=== PATIENT | female | born 1980 | race Caucasian/White ===

== ENCOUNTER 2017-10-14 20:31 | Inpatient (IN) | payer OTHER ==
[~2017-10-14] VITALS: Ht 157.5 cm; Wt 93.1 kg
[2017-10-14 22:25] VITALS: BP 130/86
[2017-10-14] MEDS: ONDANSETRON PF 4 MG/2 ML VIAL. IV PRN (22:59)
[2017-10-14] MEDS: IV NORMAL SALINE 1000ML BAG 1,000 ML IV SCH (22:59)
[2017-10-14 23:00] VITALS: BP 130/86
[2017-10-14] MEDS: MORPHINE SULFATE 2 MG/ML DISP.SYRIN. IV PRN (23:00)
[2017-10-15] VITALS (12 sets, daily range): BP systolic 88–130; BP diastolic 56–86
[2017-10-15] MEDS: MORPHINE SULFATE 2 MG/ML DISP.SYRIN. IV PRN ×3 (02:00→08:45)
[2017-10-15 05:29] LABS: BASO % 1 % (0-3); EOS % 2 % (0-3); HEMATOCRIT 34.5 % (36.0-47.0); HEMOGLOBIN 11.8 g/dL (12.0-15.5); LYMPH # 2.7 x10^3/uL (1.0-4.8); LYMPH % 40 % (24-48); MEAN CORPUSCULAR HEMOGLOBIN 31 pg (25-35); MEAN CORPUSCULAR HGB CONC 34 g/dL (31-37); MEAN CORPUSCULAR VOLUME 90 fL (79-100); MONO % 9 % (0-9); NEUT % 49 % (31-73); PLATELET COUNT 213 x10^3/uL (140-400); RED BLOOD COUNT 3.85 x10^6/uL (3.50-5.40); RED CELL DISTRIBUTION WIDTH 13.4 % (11.5-14.5); WHITE BLOOD COUNT 6.8 x10^3/uL (4.0-11.0)
[2017-10-15] MEDS ORDERED: METF500T4 PO (05:34)
[2017-10-15] MEDS ORDERED: PREN-14 PO (05:34)
[2017-10-15 05:55] LABS: CALCIUM 7.4 mg/dL (8.5-10.1); CREATININE 0.7 mg/dL (0.6-1.0); GFR 93.6; POTASSIUM 4.1 mmol/L (3.5-5.1)
[2017-10-15] MEDS: ONDANSETRON PF 4 MG/2 ML VIAL. IV PRN (08:08)
--- NOTE | 2017-10-15 10:12 | PDOC1 ---
History and Physical Date of Admission Date of Admission DATE: 10/15/17 TIME: 10:05 Identification/Chief Complaint Chief Complaint abdominal pain and nausea Problems: Source Source: Chart review, Patient History of Present Illness History of Present Illness patient transferred from [facility] overnight for acute abdominal pain. SHe has been seen at fertility clinic, and had recent miscarriage, but had felt well. Yesterday, pain worsened over 2 days, severe pain now, 7-8/10 after iV pain meds given, some nausea, she complains of dry heaves this AM, some possible chills, mild fever symptoms, no temperature documented, weight has been stable nausea is poorly controlled, not improved with IV zofran Past Medical History Cardiovascular: No pertinent hx Pulmonary: No pertinent hx GI: No pertinent hx Heme/Onc: No pertinent hx Hepatobiliary: No pertinent hx Psych: No pertinent hx Rheumatologic: No pertinent hx Infectious disease: No pertinent hx ENT: No pertinent hx Renal/: No pertinent hx Endocrine: No pertinent hx Dermatology: No pertinent hx Grav: 3 Para: 1 Past Surgical History Past Surgical History: No pertinent history Family History Family History: Hypertension Social History Smoke: No ALCOHOL: none Current Medications Current Medications Current Medications Morphine Sulfate 2 mg PRN Q2HR PRN IV SEVERE PAIN Last administered on 08:45; Start 10/14/17 at 22:45; Stop 10/15/17 at 10:03; Status DC Ondansetron HCl (Zofran) 4 mg PRN Q6HRS PRN IV NAUSEA/VOMITING Last administered on 10/15/17 08:08; Start 10/14/17 at 22:45; Stop 10/15/17 at 10 :04; Status DC Sodium Chloride 1,000 ml @ 125 mls/hr Q8H IV Last administered on 10/14/17 22:59; Start 10/14/17 at 22:45 Morphine Sulfate 4 mg PRN Q2HR PRN IV SEVERE PAIN; Start 10/15/17 at 10:15; Status UNV Saliva Substitute (Biotene Moisturizing Mouth) 2 spray PRN Q15MIN PRN PO DRY MOUTH; Start 10/15/17 at 10:15; Status UNV Ondansetron HCl (Zofran) 8 mg PRN Q8HRS PRN IV NAUSEA/VOMITING; Start 12/23/ 17 at 10:15; Status UNV Active Scripts Active Reported Metformin Hcl 500 Mg Tablet 500 Mg PO BIDWMEALS Tablet ( #103/Iron Fumarate/Fa) 1 Each Tablet 1 Each PO Allergies Allergies: Coded Allergies: No Known Allergies (Verified Allergy, Unknown, 10/14/17) ROS General: YES: Appetite, No: Chills, Night Sweats, Fatigue, Malaise, Other PSYCHOLOGICAL ROS: No: Anxiety, Behavioral Disorder, Concentration difficultie , Decreased libido, Depression, Disorientation, Hallucinations, Hostility, Irritablity, Memory difficulties, Mood Swings, Obsessive thoughts, Other Eyes: No Blurry vision, No Decreased vision, No Double vision, No Dry eyes, No Excessive tearing, No Eye Pain, No Itchy Eyes, No Loss of vision, No Photophobia , No Scotomata, No Uses contacts, No Uses glasses, No Other HEENT: No: Heacaches, Visual Changes, Hearing change, Nasal congestion, Nasal discharge, Oral lesions, Sinus pain, Sore Throat, Epistaxis, Sneezing, Snoring, Tinnitus, Vertigo, Vocal changes, Other Hematological and Lymphatic: No: Bleeding Problems, Blood Clots, Blood Transfusions, Brusing, Night Sweats, Pallor, Swollen Lymph Nodes, Other Respiratory: No: Cough, Hemoptysis, Orthopnea, Pleuritic Pain, Shortness of breath, SOB with excertion, Sputum Changes, Stridor, Tachypnea, Wheezing, Other Cardiovascular: No Chest Pain, No Palpitations, No Orthopnea, No Paroxysmal Noc. Dyspnea, No Edema, No Lt Headedness, No Other Gastrointestinal: Yes Nausea, Yes Vomiting, Yes Abdominal Pain Genitourinary: No Dysuria, No Frequency, No Incontinence, No Hematuria, No Retention, No Discharge, No Urgency, No Pain, No Flank Pain, No Other, No , No , No , No , No , No , No Musculoskeletal: No Gait Disturbance, No Joint Pain, No Joint Stiffness, No Joint Swelling, No Muscle Pain, No Muscular Weakness, No Pain In:, No Swelling In:, No Other Neurological: No Behavorial Changes, No Bowel/Bladder ControlChng, No Confusion , No Dizziness, No Gait Disturbance, No Headaches, No Impaired Coord/balance, No Memory Loss, No Numbness/Tingling, No Seizures, No Speech Problems, No Tremors, No Visual Changes, No Weakness, No Other Skin: Yes Dry Skin, No Eczema, No Hair Changes, No Lumps, No Mole Changes, No Mottling, No Nail Changes, No Pruritus, No Rash, No Skin Lesion Changes, No Other, No Acne Physical Exam General: Alert, mild distress, moderate distress HEENT: PERRLA, EOMI, Mucous membr. moist/pink Lungs: Clear to auscultation Heart: no gallops, murmurs Abdomen: Normal bowel sounds, Soft, Other (tender, RLQ with guarding, mild referred, pain with me moving the bed, ) Extremities: No cyanosis, No edema Skin: No rashes Neuro: Normal gait, Sensation intact Psych/Mental Status: Mood NL (pain) Vitals Vitals Vital Signs Date Time Temp Pulse Resp B/P (MAP) Pulse Ox O2 Delivery O2 Flow Rate FiO2 10/15/17 09:23 Room Air 10/15/17 07:15 98.6 90 18 109/71 (84) 97 98.6 Labs Labs Laboratory Tests Test 10/15/17 05:00 White Blood Count 6.8 x10^3/uL (4.0-11.0) Red Blood Count 3.85 x10^6/uL (3.50-5.40) Hemoglobin 11.8 g/dL (12.0-15.5) Hematocrit 34.5 % (36.0-47.0) Mean Corpuscular Volume 90 fL (79-100) Mean Corpuscular Hemoglobin 31 pg (25-35) Mean Corpuscular Hemoglobin Concent 34 g/dL (31-37) Red Cell Distribution Width 13.4 % (11.5-14.5) Platelet Count 213 x10^3/uL (140-400) Neutrophils (%) (Auto) 49 % (31-73) Lymphocytes (%) (Auto) 40 % (24-48) Monocytes (%) (Auto) 9 % (0-9) Eosinophils (%) (Auto) 2 % (0-3) Basophils (%) (Auto) 1 % (0-3) Neutrophils # (Auto) 3.3 x10^3uL (1.8-7.7) Lymphocytes # (Auto) 2.7 x10^3/uL (1.0-4.8) Monocytes # (Auto) 0.6 x10^3/uL (0.0-1.1) Eosinophils # (Auto) 0.2 x10^3/uL (0.0-0.7) Basophils # (Auto) 0.0 x10^3/uL (0.0-0.2) Sodium Level 142 mmol/L (136-145) Potassium Level 4.1 mmol/L (3.5-5.1) Chloride Level 108 mmol/L (98-107) Carbon Dioxide Level 26 mmol/L (21-32) Anion Gap 8 (6-14) Blood Urea Nitrogen 7 mg/dL (7-20) Creatinine 0.7 mg/dL (0.6-1.0) Estimated GFR (Cockcroft-Gault) 93.6 Glucose Level 84 mg/dL (70-99) Calcium Level 7.4 mg/dL (8.5-10.1) Laboratory Tests Test 10/15/17 05:00 White Blood Count 6.8 x10^3/uL (4.0-11.0) Red Blood Count 3.85 x10^6/uL (3.50-5.40) Hemoglobin 11.8 g/dL (12.0-15.5) Hematocrit 34.5 % (36.0-47.0) Mean Corpuscular Volume 90 fL (79-100) Mean Corpuscular Hemoglobin 31 pg (25-35) Mean Corpuscular Hemoglobin Concent 34 g/dL (31-37) Red Cell Distribution Width 13.4 % (11.5-14.5) Platelet Count 213 x10^3/uL (140-400) Neutrophils (%) (Auto) 49 % (31-73) Lymphocytes (%) (Auto) 40 % (24-48) Monocytes (%) (Auto) 9 % (0-9) Eosinophils (%) (Auto) 2 % (0-3) Basophils (%) (Auto) 1 % (0-3) Neutrophils # (Auto) 3.3 x10^3uL (1.8-7.7) Lymphocytes # (Auto) 2.7 x10^3/uL (1.0-4.8) Monocytes # (Auto) 0.6 x10^3/uL (0.0-1.1) Eosinophils # (Auto) 0.2 x10^3/uL (0.0-0.7) Basophils # (Auto) 0.0 x10^3/uL (0.0-0.2) Sodium Level 142 mmol/L (136-145) Potassium Level 4.1 mmol/L (3.5-5.1) Chloride Level 108 mmol/L (98-107) Carbon Dioxide Level 26 mmol/L (21-32) Anion Gap 8 (6-14) Blood Urea Nitrogen 7 mg/dL (7-20) Creatinine 0.7 mg/dL (0.6-1.0) Estimated GFR (Cockcroft-Gault) 93.6 Glucose Level 84 mg/dL (70-99) Calcium Level 7.4 mg/dL (8.5-10.1) VTE Prophylaxis Ordered VTE Prophylaxis Devices: Yes VTE Pharmacological Prophylaxi: Contraindicated Assessment/Plan Assessment/Plan Acute right lower quadrant pain, nausea and vomiting guarding pain recent miscarriage, B-hgb 2, implies cleared, but no D+C obesity, BMI 37 SHANNON JARVIS MD Oct 15, 2017 10:12
[2017-10-15] MEDS ORDERED: SALIVA STIMULANT AGENT 44ML SPRAY BOTTLE. PO PRN (10:15)
[2017-10-15] MEDS ORDERED: ONDANSETRON PF 4 MG/2 ML VIAL. IV PRN ×3 (10:15→18:30)
[2017-10-15] MEDS ORDERED: MORPHINE SULFATE 4 MG/ML DISP.SYRIN. IV PRN (10:15)
[2017-10-15] MEDS: IV NORMAL SALINE 1000ML BAG 1,000 ML IV SCH ×2 (11:55→19:16)
[2017-10-15] MEDS ORDERED: BUPIVAC MPF-EPI 0.5%-1:200000 30 ML VIAL. ONE (13:36)
[2017-10-15] MEDS ORDERED: SCOPOLAMINE 1.5MG PATCH. TD ONE ×2 (15:06→15:15)
[2017-10-15] MEDS ORDERED: fentaNYL PF VIAL 100 MCG/2 ML VIAL ONE (15:30)
[2017-10-15] MEDS ORDERED: ROCURONIUM 50 MG/5 ML VIAL. ONE (15:31)
[2017-10-15] MEDS ORDERED: LIDOCAINE 2% PF Vial for OR 5 ML VIAL. ONE (15:33)
[2017-10-15] MEDS ORDERED: DEXAMETHASONE SOD PHOS 20 MG/5 ML VIAL. ONE (15:33)
[2017-10-15] MEDS ORDERED: ONDANSETRON PF 4 MG/2 ML VIAL. ONE (15:33)
[2017-10-15] MEDS ORDERED: PROPOFOL 20 ML IV ONE (15:33)
--- NOTE | 2017-10-15 15:37 | PDOC2 ---
CONSULT Date of Consult Date of Consult DATE: 10/15/17 TIME: 15:33 Reason for Consult Reason for Consult: vaginal bleeding and appendicitis Referring Physician Referring Physician: Dr. Mantilla Identification/Chief Complaint Chief Complaint appenciditis and vaginal bleeding. Problems: Source Source: Chart review History of Present Illness Reason for Visit: 37 y/o with incomplete spontaneous and appendicitis dx at [facility]. Pt. in surgery currently. Pt.'s HCG level of 5 indicates completed SAB. WIll f/u tomorrow when patient recovering from surgery. Past Medical History Cardiovascular: No pertinent hx Pulmonary: No pertinent hx GI: No pertinent hx Heme/Onc: No pertinent hx Hepatobiliary: No pertinent hx Psych: No pertinent hx Rheumatologic: No pertinent hx Infectious disease: No pertinent hx ENT: No pertinent hx Renal/: No pertinent hx Endocrine: No pertinent hx Dermatology: No pertinent hx Grav: 3 Para: 1 Past Surgical History Past Surgical History: No pertinent history Family History Family History: Hypertension Social History No ALCOHOL: none Current Medications Current Medications Current Medications Morphine Sulfate 2 mg PRN Q2HR PRN IV SEVERE PAIN Last administered on 08:45; Start 10/14/17 at 22:45; Stop 10/15/17 at 10:03; Status DC Ondansetron HCl (Zofran) 4 mg PRN Q6HRS PRN IV NAUSEA/VOMITING Last administered on 10/15/17 08:08; Start 10/14/17 at 22:45; Stop 10/15/17 at 10 :04; Status DC Sodium Chloride 1,000 ml @ 125 mls/hr Q8H IV Last administered on 10/15/17 11:55; Start 10/14/17 at 22:45 Morphine Sulfate 4 mg PRN Q2HR PRN IV SEVERE PAIN Last administered on 11:58; Start 10/15/17 at 10:15 Saliva Substitute (Biotene Moisturizing Mouth) 2 spray PRN Q15MIN PRN PO DRY MOUTH; Start 10/15/17 at 10:15 Ondansetron HCl (Zofran) 8 mg PRN Q8HRS PRN IV NAUSEA/VOMITING; Start at 10:15 Bupivacaine HCl/ Epinephrine Bitart (Sensorcain-Mpf Epi 0.5%-1:040304) 30 ml STK -MED ONCE .ROUTE ; Start 10/15/17 at 13:36; Stop 10/15/17 at 13:37; Status DC Scopolamine (Transderm-Scop) 1 patch 1X ONCE TD Last administered on t 15:10; Start 10/15/17 at 15:15; Stop 10/15/17 at 15:16; Status DC Scopolamine (Transderm-Scop) 1 patch STK-MED ONCE TD ; Start 10/15/17 at 15:06 ; Stop 10/15/17 at 15:07; Status DC Fentanyl Citrate (Fentanyl 2ml Vial) 100 mcg STK-MED ONCE .ROUTE ; Start at 15:30; Stop 10/15/17 at 15:31; Status DC Rocuronium [place] (Zemuron) 50 mg STK-MED ONCE .ROUTE ; Start 10/15/17 at 15: 31; Stop 10/15/17 at 15:32; Status DC Active Scripts Active Reported Metformin Hcl 500 Mg Tablet 500 Mg PO BIDWMEALS Tablet ( #103/Iron Fumarate/Fa) 1 Each Tablet 1 Each PO Allergies Allergies: Coded Allergies: No Known Allergies (Verified Allergy, Unknown, 10/14/17) Physical Exam Physical Exam deferred. pt. in surgery. Vitals VITALS Vital Signs Date Time Temp Pulse Resp B/P (MAP) Pulse Ox O2 Delivery O2 Flow Rate FiO2 10/15/17 14:45 99.3 99 20 118/69 98 Room Air 99.3 Labs Labs Laboratory Tests Test 10/15/17 05:00 White Blood Count 6.8 x10^3/uL (4.0-11.0) Red Blood Count 3.85 x10^6/uL (3.50-5.40) Hemoglobin 11.8 g/dL (12.0-15.5) Hematocrit 34.5 % (36.0-47.0) Mean Corpuscular Volume 90 fL (79-100) Mean Corpuscular Hemoglobin 31 pg (25-35) Mean Corpuscular Hemoglobin Concent 34 g/dL (31-37) Red Cell Distribution Width 13.4 % (11.5-14.5) Platelet Count 213 x10^3/uL (140-400) Neutrophils (%) (Auto) 49 % (31-73) Lymphocytes (%) (Auto) 40 % (24-48) Monocytes (%) (Auto) 9 % (0-9) Eosinophils (%) (Auto) 2 % (0-3) Basophils (%) (Auto) 1 % (0-3) Neutrophils # (Auto) 3.3 x10^3uL (1.8-7.7) Lymphocytes # (Auto) 2.7 x10^3/uL (1.0-4.8) Monocytes # (Auto) 0.6 x10^3/uL (0.0-1.1) Eosinophils # (Auto) 0.2 x10^3/uL (0.0-0.7) Basophils # (Auto) 0.0 x10^3/uL (0.0-0.2) Sodium Level 142 mmol/L (136-145) Potassium Level 4.1 mmol/L (3.5-5.1) Chloride Level 108 mmol/L (98-107) Carbon Dioxide Level 26 mmol/L (21-32) Anion Gap 8 (6-14) Blood Urea Nitrogen 7 mg/dL (7-20) Creatinine 0.7 mg/dL (0.6-1.0) Estimated GFR (Cockcroft-Gault) 93.6 Glucose Level 84 mg/dL (70-99) Calcium Level 7.4 mg/dL (8.5-10.1) Laboratory Tests Test 10/15/17 05:00 White Blood Count 6.8 x10^3/uL (4.0-11.0) Red Blood Count 3.85 x10^6/uL (3.50-5.40) Hemoglobin 11.8 g/dL (12.0-15.5) Hematocrit 34.5 % (36.0-47.0) Mean Corpuscular Volume 90 fL (79-100) Mean Corpuscular Hemoglobin 31 pg (25-35) Mean Corpuscular Hemoglobin Concent 34 g/dL (31-37) Red Cell Distribution Width 13.4 % (11.5-14.5) Platelet Count 213 x10^3/uL (140-400) Neutrophils (%) (Auto) 49 % (31-73) Lymphocytes (%) (Auto) 40 % (24-48) Monocytes (%) (Auto) 9 % (0-9) Eosinophils (%) (Auto) 2 % (0-3) Basophils (%) (Auto) 1 % (0-3) Neutrophils # (Auto) 3.3 x10^3uL (1.8-7.7) Lymphocytes # (Auto) 2.7 x10^3/uL (1.0-4.8) Monocytes # (Auto) 0.6 x10^3/uL (0.0-1.1) Eosinophils # (Auto) 0.2 x10^3/uL (0.0-0.7) Basophils # (Auto) 0.0 x10^3/uL (0.0-0.2) Sodium Level 142 mmol/L (136-145) Potassium Level 4.1 mmol/L (3.5-5.1) Chloride Level 108 mmol/L (98-107) Carbon Dioxide Level 26 mmol/L (21-32) Anion Gap 8 (6-14) Blood Urea Nitrogen 7 mg/dL (7-20) Creatinine 0.7 mg/dL (0.6-1.0) Estimated GFR (Cockcroft-Gault) 93.6 Glucose Level 84 mg/dL (70-99) Calcium Level 7.4 mg/dL (8.5-10.1) Assessment/Plan Assessment/Plan A: Complete SAB Appendicitis P: Will f/u when patient out of surgery. BOBBI HASKINS Jr, MD Oct 15, 2017 15:37
[2017-10-15] MEDS ORDERED: DESFLURANE 31 TO 60 MINUTES IH ONE (15:52)
[2017-10-15] MEDS ORDERED: diphenhydrAMINE 50 MG/ML VIAL ONE (16:39)
[2017-10-15] MEDS ORDERED: KETOROLAC 30 MG/ML INJ FOR OR. INJ ONE (16:39)
[2017-10-15] MEDS ORDERED: DESFLURANE 61 TO 120 MINUTES IH ONE (16:40)
[2017-10-15] MEDS ORDERED: IV RINGERS,LACTATED 1000ML 1,000 ML IV SCH (17:42)
[2017-10-15] MEDS ORDERED: MORPHINE SULFATE 2 MG/ML DISP.SYRIN. IV PRN (17:45)
[2017-10-15] MEDS ORDERED: HYDROmorphone 2 MG/ML VIAL IV PRN ×2 (17:45→18:30)
[2017-10-15] MEDS ORDERED: fentaNYL PF VIAL 100 MCG/2 ML VIAL IV PRN (17:45)
[2017-10-15] MEDS ORDERED: LIDOCAINE 1% PF 2 ML VIAL. ID PRN (17:45)
[2017-10-15] MEDS: PROCHLORPERAZINE 10 MG/2 ML VIAL. IV PRN ×2 (17:50→18:18)
[2017-10-15] MEDS: fentaNYL PF VIAL 100 MCG/2 ML VIAL IV PRN ×2 (17:53→18:19)
[2017-10-15] MEDS ORDERED: DEXTROSE 50% 25 GM / 50ML DISP.SYRIN. IV PRN (18:30)
[2017-10-15] MEDS ORDERED: diphenhydrAMINE HCL 25 MG CAPSULE PO PRN (18:30)
[2017-10-15] MEDS ORDERED: 0.9 % SODIUM CHLORIDE 10 ML DISP.SYRIN. IV PRN (18:30)
[2017-10-15] MEDS ORDERED: diphenhydrAMINE 50 MG/ML VIAL IV PRN (18:30)
--- NOTE | 2017-10-15 18:33 | PDOC ---
BRIEF OPERATIVE NOTE Date: Oct 15, 2017 Pre-Op Diagnosis acute appendicitis Post-Op Diagnosis same, mesenteric cyst Procedure Performed l/s appendectomy, cystectomy Surgeon Renaldo Anesthesia Type: General Blood Loss 25cc IV Fluid 1000cc Urine Output 150cc Specimens Obtained appendix, mesenteric cyst Findings early appendicitis, mesenteric cyst, torsed? Complications none ARTUR CHRISTIANSEN MD Oct 15, 2017 18:33
--- NOTE | 2017-10-15 20:17 | OP ---
DATE OF SURGERY: 10/15/2017 PREOPERATIVE DIAGNOSIS: Acute appendicitis. 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 PROCEDURE: 1. Laparoscopic appendectomy. 2. Cystectomy. SURGEON: Bentley Christiansen MD ANESTHESIA: General. BLOOD LOSS: 25 mL. INTRAVENOUS FLUID: 1 liter. INDICATIONS: The patient is a 37-year-old with right lower quadrant pain. Some soft signs on CT, but she is brought for appendectomy. OPERATIVE FINDINGS: The appendix was mildly injected, but was without obvious purulence. A small mesenteric cyst was present just medial to the appendix and appeared to have torsed. It had an attachment to the right fallopian tube. Visual inspection of the remainder of the abdomen failed to reveal obvious abnormalities. DESCRIPTION OF PROCEDURE: The patient brought to the operating suite, given general endotracheal anesthetic. Lane catheter placed to dependent drainage. The abdomen prepped and draped in usual sterile fashion. A supraumbilical incision was infiltrated with local anesthetic, sharply incised and a 5 mm Visiport used to safely gain access into the abdominal cavity, taking care to avoid injury to abdominal contents. Pneumoperitoneum established. Camera inserted, inspection carried out with results as noted above. Under direct vision, the suprapubic and left lower quadrant ports were placed and the supraumbilical port converted to 12 mm for instrumentation. Bed rolled to the left. The appendix was identified and a small opening created between the base of the appendix and the mesoappendix. The Endo-LUCA stapler was used to amputate the base of the appendix with a tissue load. The mesoappendix was divided with two vascular loads. Hemostasis augmented as necessary with a medium large clip. Appendix placed in an EndoCatch bag. We then turned our attention to the mesenteric cyst. It was excised by using a vascular load of the Endo-LUCA across the pedicle and a medium large clip on the attachment to the fallopian tube. Specimen placed in an EndoCatch bag and delivered along with the appendix. Epigastric incision closed with interrupted 0 Vicryl suture. No bleeding seen at the closure with intra-abdominal pressure at 6 cm of water. Inspection of the appendiceal stump and mesoappendix revealed no evidence of bleeding. Left lower quadrant port removed, no bleeding seen. Abdomen decompressed, camera slowly removed, no bleeding identified. Skin incisions closed with subcuticular 4-0 Monocryl. Steri-Strips and sterile dressings applied. Lane catheter removed. The patient awakened from her anesthetic and taken to the recovery room in satisfactory condition. BENTLEY CHRISTIANSEN MD DR: ALEJANDRA/kirit JOB#: [id number] / [id number]
[2017-10-15] MEDS: DOCUSATE SODIUM 100 MG CAPSULE. PO SCH (21:13)
[2017-10-15] MEDS: POTASSIUM CL 20MEQ-0.45% NACL 1,000 ML IV SCH (21:13)
[2017-10-15] MEDS: oxyCODONE/APAP 5/325 1 TAB TABLET PO PRN (23:26)
[2017-10-16 03:00] VITALS: BP 92/40
[2017-10-16] MEDS: IV NORMAL SALINE 1000ML BAG 1,000 ML IV SCH (03:16)
[2017-10-16] MEDS: POTASSIUM CL 20MEQ-0.45% NACL 1,000 ML IV SCH ×2 (04:26→14:26)
[2017-10-16 05:26] LABS: BASO % 0 % (0-3); EOS % 0 % (0-3); HEMATOCRIT 35.5 % (36.0-47.0); HEMOGLOBIN 12.1 g/dL (12.0-15.5); LYMPH # 0.8 x10^3/uL (1.0-4.8); LYMPH % 8 % (24-48); MEAN CORPUSCULAR HEMOGLOBIN 30 pg (25-35); MEAN CORPUSCULAR HGB CONC 34 g/dL (31-37); MEAN CORPUSCULAR VOLUME 89 fL (79-100); MONO % 3 % (0-9); NEUT % 89 % (31-73); PLATELET COUNT 213 x10^3/uL (140-400); RED BLOOD COUNT 4.01 x10^6/uL (3.50-5.40); RED CELL DISTRIBUTION WIDTH 13.3 % (11.5-14.5); WHITE BLOOD COUNT 9.6 x10^3/uL (4.0-11.0)
[2017-10-16 06:02] LABS: ALBUMIN 2.9 g/dL (3.4-5.0); ALBUMIN/GLOBULIN RATIO 0.7 (1.0-1.7); CREATININE 0.7 mg/dL (0.6-1.0); GFR 93.6; POTASSIUM 4.3 mmol/L (3.5-5.1); TOTAL BILIRUBIN 0.2 mg/dL (0.2-1.0); TOTAL PROTEIN 6.8 g/dL (6.4-8.2)
[2017-10-16 06:29] LABS: PLT ESTIMATE ADEQUATE (ADEQUATE)
[2017-10-16 07:00] VITALS: BP 95/50
[2017-10-16] MEDS ORDERED: ENOXAPARIN 40 MG/0.4 ML SYRINGE. SQ SCH (09:00)
[2017-10-16] MEDS: DOCUSATE SODIUM 100 MG CAPSULE. PO SCH (10:36)
[2017-10-16] MEDS: oxyCODONE/APAP 5/325 1 TAB TABLET PO PRN ×3 (10:37→15:32)
--- NOTE | 2017-10-16 11:13 | PDOC ---
SURGICAL PROGRESS NOTE Subjective feels "much better" Vital Signs Vital Signs Date Time Temp Pulse Resp B/P (MAP) Pulse Ox O2 Delivery O2 Flow Rate FiO2 10/16/17 10:37 95 Room Air 10/16/17 07:00 97.8 80 18 95/50 (65) 97.8 10/15/17 18:20 2 I&O Intake and Output 10/16/17 07:00 Intake Total 1550 ml Output Total 175 ml Balance 1375 ml Intake Oral 400 ml IV Total 1150 ml Output Urine Total 150 ml Estimated Blood Loss 25 ml # Voids 2 PATIENT HAS A FREGOSO: No General: Alert, Oriented X3, No acute distress Abdomen: Soft Labs Laboratory Tests Test 10/15/17 05:00 10/16/17 04:30 White Blood Count 6.8 x10^3/uL (4.0-11.0) 9.6 x10^3/uL (4.0-11.0) Red Blood Count 3.85 x10^6/uL (3.50-5.40) 4.01 x10^6/uL (3.50-5.40) Hemoglobin 11.8 g/dL (12.0-15.5) 12.1 g/dL (12.0-15.5) Hematocrit 34.5 % (36.0-47.0) 35.5 % (36.0-47.0) Mean Corpuscular Volume 90 fL (79-100) 89 fL (79-100) Mean Corpuscular Hemoglobin 31 pg (25-35) 30 pg (25-35) Mean Corpuscular Hemoglobin Concent 34 g/dL (31-37) 34 g/dL (31-37) Red Cell Distribution Width 13.4 % (11.5-14.5) 13.3 % (11.5-14.5) Platelet Count 213 x10^3/uL (140-400) 213 x10^3/uL (140-400) Neutrophils (%) (Auto) 49 % (31-73) 89 % (31-73) Lymphocytes (%) (Auto) 40 % (24-48) 8 % (24-48) Monocytes (%) (Auto) 9 % (0-9) 3 % (0-9) Eosinophils (%) (Auto) 2 % (0-3) 0 % (0-3) Basophils (%) (Auto) 1 % (0-3) 0 % (0-3) Neutrophils # (Auto) 3.3 x10^3uL (1.8-7.7) 8.6 x10^3uL (1.8-7.7) Lymphocytes # (Auto) 2.7 x10^3/uL (1.0-4.8) 0.8 x10^3/uL (1.0-4.8) Monocytes # (Auto) 0.6 x10^3/uL (0.0-1.1) 0.3 x10^3/uL (0.0-1.1) Eosinophils # (Auto) 0.2 x10^3/uL (0.0-0.7) 0.0 x10^3/uL (0.0-0.7) Basophils # (Auto) 0.0 x10^3/uL (0.0-0.2) 0.0 x10^3/uL (0.0-0.2) Sodium Level 142 mmol/L (136-145) 138 mmol/L (136-145) Potassium Level 4.1 mmol/L (3.5-5.1) 4.3 mmol/L (3.5-5.1) Chloride Level 108 mmol/L (98-107) 105 mmol/L (98-107) Carbon Dioxide Level 26 mmol/L (21-32) 24 mmol/L (21-32) Anion Gap 8 (6-14) 9 (6-14) Blood Urea Nitrogen 7 mg/dL (7-20) 6 mg/dL (7-20) Creatinine 0.7 mg/dL (0.6-1.0) 0.7 mg/dL (0.6-1.0) Estimated GFR (Cockcroft-Gault) 93.6 93.6 Glucose Level 84 mg/dL (70-99) 137 mg/dL (70-99) Calcium Level 7.4 mg/dL (8.5-10.1) 8.0 mg/dL (8.5-10.1) Segmented Neutrophils % 87 % (35-66) Band Neutrophils % 1 % (0-9) Lymphocytes % 11 % (24-48) Monocytes % 1 % (0-10) Platelet Estimate Adequate (ADEQUATE) BUN/Creatinine Ratio 9 (6-20) Total Bilirubin 0.2 mg/dL (0.2-1.0) Aspartate Amino Transf (AST/SGOT) 20 U/L (15-37) Alanine Aminotransferase (ALT/SGPT) 21 U/L (14-59) Alkaline Phosphatase 62 U/L (46-116) Total Protein 6.8 g/dL (6.4-8.2) Albumin 2.9 g/dL (3.4-5.0) Albumin/Globulin Ratio 0.7 (1.0-1.7) Laboratory Tests Test 10/16/17 04:30 White Blood Count 9.6 x10^3/uL (4.0-11.0) Red Blood Count 4.01 x10^6/uL (3.50-5.40) Hemoglobin 12.1 g/dL (12.0-15.5) Hematocrit 35.5 % (36.0-47.0) Mean Corpuscular Volume 89 fL (79-100) Mean Corpuscular Hemoglobin 30 pg (25-35) Mean Corpuscular Hemoglobin Concent 34 g/dL (31-37) Red Cell Distribution Width 13.3 % (11.5-14.5) Platelet Count 213 x10^3/uL (140-400) Neutrophils (%) (Auto) 89 % (31-73) Lymphocytes (%) (Auto) 8 % (24-48) Monocytes (%) (Auto) 3 % (0-9) Eosinophils (%) (Auto) 0 % (0-3) Basophils (%) (Auto) 0 % (0-3) Neutrophils # (Auto) 8.6 x10^3uL (1.8-7.7) Lymphocytes # (Auto) 0.8 x10^3/uL (1.0-4.8) Monocytes # (Auto) 0.3 x10^3/uL (0.0-1.1) Eosinophils # (Auto) 0.0 x10^3/uL (0.0-0.7) Basophils # (Auto) 0.0 x10^3/uL (0.0-0.2) Segmented Neutrophils % 87 % (35-66) Band Neutrophils % 1 % (0-9) Lymphocytes % 11 % (24-48) Monocytes % 1 % (0-10) Platelet Estimate Adequate (ADEQUATE) Sodium Level 138 mmol/L (136-145) Potassium Level 4.3 mmol/L (3.5-5.1) Chloride Level 105 mmol/L (98-107) Carbon Dioxide Level 24 mmol/L (21-32) Anion Gap 9 (6-14) Blood Urea Nitrogen 6 mg/dL (7-20) Creatinine 0.7 mg/dL (0.6-1.0) Estimated GFR (Cockcroft-Gault) 93.6 BUN/Creatinine Ratio 9 (6-20) Glucose Level 137 mg/dL (70-99) Calcium Level 8.0 mg/dL (8.5-10.1) Total Bilirubin 0.2 mg/dL (0.2-1.0) Aspartate Amino Transf (AST/SGOT) 20 U/L (15-37) Alanine Aminotransferase (ALT/SGPT) 21 U/L (14-59) Alkaline Phosphatase 62 U/L (46-116) Total Protein 6.8 g/dL (6.4-8.2) Albumin 2.9 g/dL (3.4-5.0) Albumin/Globulin Ratio 0.7 (1.0-1.7) Assessment/Plan POD 1 l/s appendectomy home today F/U in the [facility] office 10/20 Problems: ARTUR CHRISTIANSEN MD Oct 16, 2017 11:13
[2017-10-16 11:36] VITALS: BP 103/61
--- NOTE | 2017-10-16 11:48 | PDOC ---
SURGICAL PROGRESS NOTE Subjective 37 y/o A2 with complete SAB and s/p appendectomy is feeling better this am. Pain controlled. She was undergoing infertility treatment with [facility] for conception. Vital Signs Vital Signs Date Time Temp Pulse Resp B/P (MAP) Pulse Ox O2 Delivery O2 Flow Rate FiO2 10/16/17 11:36 97.0 99 18 103/61 (75) 96 Room Air 97.0 10/15/17 18:20 2 I&O Intake and Output 10/16/17 06:59 Intake Total 1550 ml Output Total 175 ml Balance 1375 ml Intake Oral 400 ml IV Total 1150 ml Output Urine Total 150 ml Estimated Blood Loss 25 ml # Voids 2 PATIENT HAS A FREGOSO: No General: Alert, Oriented X3 HEENT: Atraumatic Lungs: Clear to auscultation Heart: Regular rate Abdomen: Normal bowel sounds, Soft, No masses Psych/Mental Status: Mental status NL Labs Laboratory Tests Test 10/15/17 05:00 10/16/17 04:30 White Blood Count 6.8 x10^3/uL (4.0-11.0) 9.6 x10^3/uL (4.0-11.0) Red Blood Count 3.85 x10^6/uL (3.50-5.40) 4.01 x10^6/uL (3.50-5.40) Hemoglobin 11.8 g/dL (12.0-15.5) 12.1 g/dL (12.0-15.5) Hematocrit 34.5 % (36.0-47.0) 35.5 % (36.0-47.0) Mean Corpuscular Volume 90 fL (79-100) 89 fL (79-100) Mean Corpuscular Hemoglobin 31 pg (25-35) 30 pg (25-35) Mean Corpuscular Hemoglobin Concent 34 g/dL (31-37) 34 g/dL (31-37) Red Cell Distribution Width 13.4 % (11.5-14.5) 13.3 % (11.5-14.5) Platelet Count 213 x10^3/uL (140-400) 213 x10^3/uL (140-400) Neutrophils (%) (Auto) 49 % (31-73) 89 % (31-73) Lymphocytes (%) (Auto) 40 % (24-48) 8 % (24-48) Monocytes (%) (Auto) 9 % (0-9) 3 % (0-9) Eosinophils (%) (Auto) 2 % (0-3) 0 % (0-3) Basophils (%) (Auto) 1 % (0-3) 0 % (0-3) Neutrophils # (Auto) 3.3 x10^3uL (1.8-7.7) 8.6 x10^3uL (1.8-7.7) Lymphocytes # (Auto) 2.7 x10^3/uL (1.0-4.8) 0.8 x10^3/uL (1.0-4.8) Monocytes # (Auto) 0.6 x10^3/uL (0.0-1.1) 0.3 x10^3/uL (0.0-1.1) Eosinophils # (Auto) 0.2 x10^3/uL (0.0-0.7) 0.0 x10^3/uL (0.0-0.7) Basophils # (Auto) 0.0 x10^3/uL (0.0-0.2) 0.0 x10^3/uL (0.0-0.2) Sodium Level 142 mmol/L (136-145) 138 mmol/L (136-145) Potassium Level 4.1 mmol/L (3.5-5.1) 4.3 mmol/L (3.5-5.1) Chloride Level 108 mmol/L (98-107) 105 mmol/L (98-107) Carbon Dioxide Level 26 mmol/L (21-32) 24 mmol/L (21-32) Anion Gap 8 (6-14) 9 (6-14) Blood Urea Nitrogen 7 mg/dL (7-20) 6 mg/dL (7-20) Creatinine 0.7 mg/dL (0.6-1.0) 0.7 mg/dL (0.6-1.0) Estimated GFR (Cockcroft-Gault) 93.6 93.6 Glucose Level 84 mg/dL (70-99) 137 mg/dL (70-99) Calcium Level 7.4 mg/dL (8.5-10.1) 8.0 mg/dL (8.5-10.1) Segmented Neutrophils % 87 % (35-66) Band Neutrophils % 1 % (0-9) Lymphocytes % 11 % (24-48) Monocytes % 1 % (0-10) Platelet Estimate Adequate (ADEQUATE) BUN/Creatinine Ratio 9 (6-20) Total Bilirubin 0.2 mg/dL (0.2-1.0) Aspartate Amino Transf (AST/SGOT) 20 U/L (15-37) Alanine Aminotransferase (ALT/SGPT) 21 U/L (14-59) Alkaline Phosphatase 62 U/L (46-116) Total Protein 6.8 g/dL (6.4-8.2) Albumin 2.9 g/dL (3.4-5.0) Albumin/Globulin Ratio 0.7 (1.0-1.7) Laboratory Tests Test 10/16/17 04:30 White Blood Count 9.6 x10^3/uL (4.0-11.0) Red Blood Count 4.01 x10^6/uL (3.50-5.40) Hemoglobin 12.1 g/dL (12.0-15.5) Hematocrit 35.5 % (36.0-47.0) Mean Corpuscular Volume 89 fL (79-100) Mean Corpuscular Hemoglobin 30 pg (25-35) Mean Corpuscular Hemoglobin Concent 34 g/dL (31-37) Red Cell Distribution Width 13.3 % (11.5-14.5) Platelet Count 213 x10^3/uL (140-400) Neutrophils (%) (Auto) 89 % (31-73) Lymphocytes (%) (Auto) 8 % (24-48) Monocytes (%) (Auto) 3 % (0-9) Eosinophils (%) (Auto) 0 % (0-3) Basophils (%) (Auto) 0 % (0-3) Neutrophils # (Auto) 8.6 x10^3uL (1.8-7.7) Lymphocytes # (Auto) 0.8 x10^3/uL (1.0-4.8) Monocytes # (Auto) 0.3 x10^3/uL (0.0-1.1) Eosinophils # (Auto) 0.0 x10^3/uL (0.0-0.7) Basophils # (Auto) 0.0 x10^3/uL (0.0-0.2) Segmented Neutrophils % 87 % (35-66) Band Neutrophils % 1 % (0-9) Lymphocytes % 11 % (24-48) Monocytes % 1 % (0-10) Platelet Estimate Adequate (ADEQUATE) Sodium Level 138 mmol/L (136-145) Potassium Level 4.3 mmol/L (3.5-5.1) Chloride Level 105 mmol/L (98-107) Carbon Dioxide Level 24 mmol/L (21-32) Anion Gap 9 (6-14) Blood Urea Nitrogen 6 mg/dL (7-20) Creatinine 0.7 mg/dL (0.6-1.0) Estimated GFR (Cockcroft-Gault) 93.6 BUN/Creatinine Ratio 9 (6-20) Glucose Level 137 mg/dL (70-99) Calcium Level 8.0 mg/dL (8.5-10.1) Total Bilirubin 0.2 mg/dL (0.2-1.0) Aspartate Amino Transf (AST/SGOT) 20 U/L (15-37) Alanine Aminotransferase (ALT/SGPT) 21 U/L (14-59) Alkaline Phosphatase 62 U/L (46-116) Total Protein 6.8 g/dL (6.4-8.2) Albumin 2.9 g/dL (3.4-5.0) Albumin/Globulin Ratio 0.7 (1.0-1.7) Assessment/Plan A: POD#1 s/p appendectomy Complete SAB P: Pt. f/u with [facility] for fertility treatment in next 2 weeks. Continue PNV and start baby ASA daily. Thank you consult. Problems: BOBBI HASKINS Jr, MD Oct 16, 2017 11:48
[2017-10-16] MEDS ORDERED: DOCU-109 PO (12:19)
[2017-10-16] MEDS ORDERED: OXYC1TAB7 PO (12:19)
--- NOTE | 2017-10-19 15:16 | PATHOLOGY ---
PATHOLOGY REPORT * * * * * * * * FINAL DIAGNOSIS: A. Segment of fibromembranous and smooth muscle tissue, mesenteric cyst: - Benign epithelial-lined cyst. See comment. B. Appendix, laparoscopic appendectomy: - Focal serosal endometriosis and endosalpingiosis. COMMENT: Sections of the appendix show focal serosal endometriosis and endosalpingiosis. There is no evidence of an acute appendicitis. Sections of the mesenteric cyst reveal a benign cyst lined by a focally ciliated, cuboidal to columnar epithelium. There is smooth muscle focally present within the wall of the cyst. The findings are consistent with cystic endosalpingiosis. There is no evidence of malignancy. (JPM:mgr; 10/19/2017) REPORT ELECTRONICALLY SIGNED BY: Srini Hernandez M.D. DATE/TIME: 10/19/2017 15:16 * * * * * * * * GROSS PATHOLOGY: A. The specimen is received in formalin labeled "Bradford Wolfe, mesenteric cyst". Received is a segment of bright yellow lobulated tissue measuring 4.1 x 1.1 x 0.5 cm in greatest dimensions with attached segment of pale tamayo cystic tissue measuring 1.5 x 1.0 x 0.7 cm filled with clear fluid. The specimen is submitted representatively in cassette A1. B. Received in formalin labeled "Bradford Wolfe, appendix," is an appendix measuring 6.7 cm in length and up to 0.7 cm in diameter with a moderate amount of attached mesoappendix. The serosal surface is pale tamayo and glistening in appearance. Sectioning reveals a pinpoint to patent lumen filled with fecal material. Cleat Maker sections are submitted in cassette B1. (CAA; 10/18/2017) INITIAL CPT CODE(S): B; 54897, 68575 Professional services performed by [facility] at [facility] [address] [place] [address] Technical services performed by [facility] at [address] [place] [address], [address], [place] [address]. SPECIMEN(S) RECEIVED: A.Mesenteric cyst B.Appendix CLINICAL HISTORY: Appendicitis PATIENT: BRADFORD WOLFE /AGE: 401/29/1980 (Age: 37) PATIENT #: [id number] ALT CASE #: SPECIMEN COLLECTION DATE: 10/15/2017 SPECIMEN RECEIVED DATE: 10/18/2017 [facility] - [address] [place] [address] - PHONE: [phone] * * * END OF REPORT * * *
== END 2017-10-16 18:00 | disposition home or self-care (01) | DRG 343 ==
LOC: 4 NORTH 22:24
PROVIDERS: ADMIT Internal Medicine; ATTEND Internal Medicine
PROC: 0DBV4ZZ Excision of Mesentery, Percutaneous Endoscopic Approach (ICD-10-PCS; 2017-10-15)
PROC: 0DTJ4ZZ Resection of Appendix, Percutaneous Endoscopic Approach (ICD-10-PCS; principal; 2017-10-15 13:00)
DX: K35.80 Unspecified acute appendicitis (principal); K66.8 Other specified disorders of peritoneum; E66.9 Obesity, unspecified; Z68.37 Body mass index [BMI] 37.0-37.9, adult; Z82.49 Family history of ischemic heart disease and other diseases of the circulatory system
CPT/HCPCS: 36415; 80048; 80053; 85007; 85025; C1769; J0690; J0780; J1100; J1170; J1200; J1650; J1885; J2270; J2405; J2704; J3010; J3490; J7030; J7120; J2001

== ENCOUNTER 2017-10-18 20:29 | Inpatient (IN) | payer OTHER ==
[~2017-10-18] VITALS: Ht 157.5 cm; Wt 93.9 kg
[~2017-10-18 20:29] MED LIST: DOCU-109 PO; METF500T4 PO; OXYC1TAB7 PO; PREN-14 PO
--- NOTE | 2017-10-18 21:12 | PHYS DOC ---
Adult General Chief Complaint Chief Complaint: DIZZY/LIGHT HEADED HPI HPI Patient is a 37 year old female who presents with right shoulder discomfort, dizziness, nausea and vomiting. She states she had her appendix removed on Tuesday since then she's been at home and has not had much of an appetite. She's not had a bowel movement but has been passing gas. She denies any concerning abdominal pain states she has some minimal discomfort around her incisions but otherwise does not have any severe pain. She states she's been not feeling right over the last several days and then started vomiting tonight. Review of Systems Review of Systems Constitutional: Denies fever or chills [] Eyes: Denies change in visual acuity, redness, or eye pain [] HENT: Denies nasal congestion or sore throat [] Respiratory: Denies cough or shortness of breath [] Cardiovascular: No additional information not addressed in HPI [] GI: Positive for abdominal pain, nausea, vomiting, denies any bloody stools or diarrhea [] : Denies dysuria or hematuria [] Musculoskeletal: Denies back pain or joint pain [] Integument: Denies rash or skin lesions [] Neurologic: Denies headache, focal weakness or sensory changes [] Endocrine: Denies polyuria or polydipsia [] All other systems were reviewed and found to be within normal limits, except as documented in this note. Current Medications Current Medications Current Medications Medications (Trade) Dose Ordered [facility] Start Time Stop Time Status Last Admin Dose Admin Morphine Sulfate 4 mg PRN Q15MIN PRN 10/18/17 21:45 10/19/17 21:44 10/18/17 22:16 4 MG Ondansetron HCl (Zofran) 4 mg 1X ONCE 10/18/17 22:00 10/18/17 22:01 DC 10/18/17 22:16 4 MG Sodium Chloride 1,000 ml @ 1,000 mls/hr Q1H 10/18/17 22:00 10/18/17 22:59 DC 10/18/17 22:16 1,000 MLS/HR Allergies Allergies Allergies Coded Allergies Type Severity Reaction Last Updated Verified No Known Allergies Allergy Unknown 10/15/17 Yes Physical Exam Physical Exam Constitutional: Well developed, well nourished, no acute distress, non-toxic appearance. [] HENT: Normocephalic, atraumatic, bilateral external ears normal, oropharynx moist, no oral exudates, nose normal. [] Eyes: PERRLA, EOMI, conjunctiva normal, no discharge. [] Neck: Normal range of motion, no tenderness, supple, no stridor. [] Cardiovascular:Heart rate regular rhythm, no murmur [] Lungs & Thorax: Bilateral breath sounds clear to auscultation [] Abdomen: Bowel sounds normal, soft, minimal tender palpation around her incision sites, no erythema appreciated, normal bowel sounds, no masses, no pulsatile masses. [] Skin: Warm, dry, no erythema, no rash. [] Back: No tenderness, no CVA tenderness. [] Extremities: No tenderness, no cyanosis, no clubbing, ROM intact, no edema. [] Neurologic: Alert and oriented X 3, normal motor function, normal sensory function, no focal deficits noted. [] Psychologic: Affect normal, judgement normal, mood normal. [] Current Patient Data Vital Signs Vital Signs Date Time Temp Pulse Resp B/P (MAP) Pulse Ox O2 Delivery O2 Flow Rate FiO2 10/18/17 22:22 96 100 10/18/17 22:16 18 Room Air 10/18/17 21:04 98.7 143/74 (97) 98.7 Lab Values Laboratory Tests Test 10/18/17 20:55 10/18/17 20:59 10/18/17 21:50 Urine Collection Type Unknown Urine Color Yellow Urine Clarity Clear Urine pH 7.0 Urine Specific [place] 1.010 Urine Protein Negative mg/dL (NEG-TRACE) Urine Glucose (UA) Negative mg/dL (NEG) Urine Ketones (Stick) Negative mg/dL (NEG) Urine Blood Negative (NEG) Urine Nitrite Negative (NEG) Urine Bilirubin Negative (NEG) Urine Urobilinogen Dipstick 0.2 mg/dL (0.2 mg/dL) Urine Leukocyte Esterase Negative (NEG) Urine RBC 0 /HPF (0-2) Urine WBC 0 /HPF (0-4) Urine Squamous Epithelial Cells Mod /LPF Urine Bacteria Moderate /HPF (0-FEW) POC Urine HCG, Qualitative Hcg negative (Negative) White Blood Count 9.6 x10^3/uL (4.0-11.0) Red Blood Count 4.44 x10^6/uL (3.50-5.40) Hemoglobin 13.2 g/dL (12.0-15.5) Hematocrit 39.3 % (36.0-47.0) Mean Corpuscular Volume 89 fL (79-100) Mean Corpuscular Hemoglobin 30 pg (25-35) Mean Corpuscular Hemoglobin Concent 34 g/dL (31-37) Red Cell Distribution Width 13.2 % (11.5-14.5) Platelet Count 223 x10^3/uL (140-400) Neutrophils (%) (Auto) 68 % (31-73) Lymphocytes (%) (Auto) 23 % (24-48) L Monocytes (%) (Auto) 7 % (0-9) Eosinophils (%) (Auto) 1 % (0-3) Basophils (%) (Auto) 0 % (0-3) Neutrophils # (Auto) 6.6 x10^3uL (1.8-7.7) Lymphocytes # (Auto) 2.2 x10^3/uL (1.0-4.8) Monocytes # (Auto) 0.7 x10^3/uL (0.0-1.1) Eosinophils # (Auto) 0.1 x10^3/uL (0.0-0.7) Basophils # (Auto) 0.0 x10^3/uL (0.0-0.2) Prothrombin Time 12.5 SEC (11.7-14.0) Prothrombin Time INR 1.0 (0.8-1.1) PTT 26 SEC (24-38) Sodium Level 142 mmol/L (136-145) Potassium Level 3.6 mmol/L (3.5-5.1) Chloride Level 103 mmol/L (98-107) Carbon Dioxide Level 28 mmol/L (21-32) Anion Gap 11 (6-14) Blood Urea Nitrogen 9 mg/dL (7-20) Creatinine 0.8 mg/dL (0.6-1.0) Estimated GFR (Cockcroft-Gault) 80.3 Glucose Level 112 mg/dL (70-99) H Calcium Level 9.2 mg/dL (8.5-10.1) Total Bilirubin 0.2 mg/dL (0.2-1.0) Direct Bilirubin < 0.1 mg/dL (0.0-0.2) Aspartate Amino Transferase (AST) 26 U/L (15-37) Alanine Aminotransferase (ALT) 23 U/L (14-59) Alkaline Phosphatase 78 U/L (46-116) Creatine Kinase 76 U/L (26-192) Creatine Kinase MB (Mass) < 0.5 ng/mL (0.0-3.6) Creatine Kinase MB Relative Index % (0-4) Total Protein 7.4 g/dL (6.4-8.2) Albumin 3.5 g/dL (3.4-5.0) Lipase 126 U/L (73-393) Laboratory Tests 10/18/17 21:50 Laboratory Tests 10/18/17 21:50 EKG EKG [] Radiology/Procedures Radiology/Procedures [] Impressions: Nausea Dizziness Postop from appendectomy Course & Med Decision Making Course & Med Decision Making Pertinent Labs and Imaging studies reviewed. (See chart for details) She fell little better with IV fluids and Zofran. I've offered her admission or to be discharged home and she states she would feel more comfortable staying can she still having some weakness and lightheadedness. Spoke with Dr. Macario regarding the patient and regarding admission and consultation. Patient is being admitted to the hospitalist. Dragon Disclaimer Dragon Disclaimer This electronic medical record was generated, in whole or in part, using a voice recognition dictation system. Departure Departure Impression: Primary Impression: Dizziness Disposition: 09 ADMITTED INPATIENT Admitting Physician: Other Condition: STABLE Referrals: HARLEEN ZURITA MD (PCP) MEKHI CANTU MD Oct 18, 2017 21:12
[2017-10-18] MEDS ORDERED: MORPHINE SULFATE 4 MG/ML DISP.SYRIN. IV/SQ PRN (21:45)
[2017-10-18 21:49] LABS: BILIRUBIN,URINE NEGATIVE (NEG); GLUCOSE,URINE NEGATIVE (NEG); NITRITE,URINE NEGATIVE (NEG); PROTEIN,URINE NEGATIVE (NEG-TRACE); UROBILINOGEN,URINE 0.2 mg/dL (0.2 mg/dL)
[2017-10-18 21:54] LABS: BACTERIA,URINE MODERATE /HPF (0-FEW); RBC,URINE 0 /HPF (0-2); SQUAMOUS EPITHELIAL CELL,UR MOD /LPF; WBC,URINE 0 /HPF (0-4)
[2017-10-18] MEDS ORDERED: ONDANSETRON PF 4 MG/2 ML VIAL. IV ONE (22:00)
[2017-10-18] MEDS ORDERED: IV NORMAL SALINE 1000ML BAG 1,000 ML IV SCH (22:00)
[2017-10-18 22:02] LABS: BASO % 0 % (0-3); EOS % 1 % (0-3); HEMATOCRIT 39.3 % (36.0-47.0); HEMOGLOBIN 13.2 g/dL (12.0-15.5); LYMPH # 2.2 x10^3/uL (1.0-4.8); LYMPH % 23 % (24-48); MEAN CORPUSCULAR HEMOGLOBIN 30 pg (25-35); MEAN CORPUSCULAR HGB CONC 34 g/dL (31-37); MEAN CORPUSCULAR VOLUME 89 fL (79-100); MONO % 7 % (0-9); NEUT % 68 % (31-73); PLATELET COUNT 223 x10^3/uL (140-400); RED BLOOD COUNT 4.44 x10^6/uL (3.50-5.40); RED CELL DISTRIBUTION WIDTH 13.2 % (11.5-14.5); WHITE BLOOD COUNT 9.6 x10^3/uL (4.0-11.0)
[2017-10-18 22:11] LABS: PROTHROMBIN TIME PATIENT 12.5 SEC (11.7-14.0)
[2017-10-18 22:26] LABS: ANION GAP 11 (6-14); BLOOD UREA NITROGEN 9 mg/dL (7-20); CALCIUM 9.2 mg/dL (8.5-10.1); CARBON DIOXIDE 28 mmol/L (21-32); CHLORIDE 103 mmol/L (98-107); CREATININE 0.8 mg/dL (0.6-1.0); GFR 80.3; GLUCOSE 112 mg/dL (70-99); POTASSIUM 3.6 mmol/L (3.5-5.1); SODIUM 142 mmol/L (136-145)
[2017-10-18 22:31] LABS: ALBUMIN 3.5 g/dL (3.4-5.0); ALK PHOS 78 U/L (46-116); ALT (SGPT) 23 U/L (14-59); AST (SGOT) 26 U/L (15-37); DIRECT BILIRUBIN < 0.1 mg/dL (0.0-0.2); TOTAL BILIRUBIN 0.2 mg/dL (0.2-1.0); TOTAL PROTEIN 7.4 g/dL (6.4-8.2)
[2017-10-18 22:35] LABS: CKMB MASS < 0.5 ng/mL (0.0-3.6); CREATINE KINASE 76 U/L (26-192)
[2017-10-18] MEDS ORDERED: ONDANSETRON PF 4 MG/2 ML VIAL. IV PRN (23:45)
[2017-10-18] MEDS ORDERED: IV DEXTROSE 5 %-0.45 % NACL 1,000 ML IV ONE (23:45)
[2017-10-19] VITALS (7 sets, daily range): BP systolic 103–114; BP diastolic 59–88
[2017-10-19] MEDS ORDERED: PREN-14 PO (00:53)
[2017-10-19] MEDS: oxyCODONE/APAP 5/325 1 TAB TABLET PO PRN (01:10)
[2017-10-19] MEDS ORDERED: CALCIUM CARBONATE 500 MG TAB.CHEW PO PRN (03:30)
[2017-10-19] MEDS ORDERED: MORPHINE SULFATE 2 MG/ML DISP.SYRIN. IV PRN (03:30)
[2017-10-19] MEDS: MORPHINE SULFATE 2 MG/ML DISP.SYRIN. IV PRN ×4 (03:59→19:34)
[2017-10-19 06:27] LABS: BASO % 1 % (0-3); EOS % 2 % (0-3); HEMATOCRIT 35.8 % (36.0-47.0); HEMOGLOBIN 12.2 g/dL (12.0-15.5); LYMPH # 2.5 x10^3/uL (1.0-4.8); LYMPH % 37 % (24-48); MEAN CORPUSCULAR HEMOGLOBIN 30 pg (25-35); MEAN CORPUSCULAR HGB CONC 34 g/dL (31-37); MEAN CORPUSCULAR VOLUME 89 fL (79-100); MONO % 7 % (0-9); NEUT % 53 % (31-73); PLATELET COUNT 184 x10^3/uL (140-400); RED BLOOD COUNT 4.04 x10^6/uL (3.50-5.40); RED CELL DISTRIBUTION WIDTH 13.2 % (11.5-14.5); WHITE BLOOD COUNT 6.8 x10^3/uL (4.0-11.0)
[2017-10-19 07:04] LABS: ALBUMIN 2.9 g/dL (3.4-5.0); ALBUMIN/GLOBULIN RATIO 0.8 (1.0-1.7); CALCIUM 8.2 mg/dL (8.5-10.1); CREATININE 0.6 mg/dL (0.6-1.0); GFR 111.9; POTASSIUM 3.6 mmol/L (3.5-5.1); TOTAL BILIRUBIN 0.1 mg/dL (0.2-1.0); TOTAL PROTEIN 6.6 g/dL (6.4-8.2)
[2017-10-19] MEDS: PRENATAL MULTIVITAMIN TABLET. PO SCH (09:00)
[2017-10-19] MEDS ORDERED: ONDANSETRON PF 4 MG/2 ML VIAL. IV PRN (09:00)
[2017-10-19] MEDS ORDERED: POLYETHYLENE GLYCOL 3350 17 GM PACKET. PO ONE (10:15)
[2017-10-19] MEDS ORDERED: MAGNESIUM HYDROXIDE 2,400 MG/30 ML ORAL.SUSP. PO PRN (10:15)
[2017-10-19] MEDS ORDERED: MAGNESIUM HYDROXIDE 2,400 MG/30 ML ORAL.SUSP. PO ONE (10:15)
[2017-10-19] MEDS ORDERED: CETIRIZINE HCL 10 MG TABLET. PO PRN (10:15)
--- NOTE | 2017-10-19 10:22 | PDOC1 ---
History and Physical Date of Admission Date of Admission DATE: 10/19/17 TIME: 10:16 Identification/Chief Complaint Chief Complaint Dizziness, right shoulder pain which has resolved, vomiting Problems: Source Source: Caregiver, Chart review, Patient History of Present Illness History of Present Illness 37-year-old female who was just discharged here a few days ago after having an uneventful lap laparoscopic appendectomy by our general surgery team, comes in because of nausea, vomiting twice at home and once at the ER and once when she Got up here to the floors. As per discharge instructions, once vomiting she needed to come back to the emergency room so she did. Labs are pretty much unremarkable, no fever, abdomen is benign except for the laparoscopic wounds which are dry and seems to be healing well. She is curious if her miscarriage or her being on fertility clinic has something to do with this. She follows with GABRIELA mendez M.D. but has not been started on any fertility drugs or hormones yet. Her miscarriage was also on the time when she had the appendectomy and she had a ovarian cystectomy sounds like by our gyne service. We are awaiting general surgery rounds. Interestingly she is on pain meds at home, asks for some morphine here. She has passed gas but no BM since the . Her last BM was 10/14, surgery was 10/15. Has not had a BM for 5 days now Right shoulder pain is gone, there is full range of motion no tenderness to palpation Past Medical History Cardiovascular: No pertinent hx Pulmonary: No pertinent hx GI: No pertinent hx Heme/Onc: No pertinent hx Hepatobiliary: No pertinent hx Psych: No pertinent hx Rheumatologic: No pertinent hx Infectious disease: No pertinent hx Renal/: No pertinent hx Endocrine: No pertinent hx Past Surgical History Past Surgical History: Appendectomy, No pertinent history (ovarian cysterctomy) Family History Family History: Hypertension Social History Smoke: No ALCOHOL: none Current Problem List Problem List Problems Medical Problems: (1) Dizziness Status: Acute Problems: Current Medications Current Medications Current Medications Morphine Sulfate 4 mg PRN Q15MIN PRN IV/SQ PAIN GREATER THAN 3/10 Last administered on 10/18/17 22:16; Start 10/18/17 at 21:45; Stop 10/19/17 at 04 :00; Status DC Sodium Chloride 1,000 ml @ 1,000 mls/hr Q1H IV Last administered on 22:16; Start 10/18/17 at 22:00; Stop 10/18/17 at 22:59; Status DC Ondansetron HCl (Zofran) 4 mg 1X ONCE IV Last administered on 10/18/17 22:16 ; Start 10/18/17 at 22:00; Stop 10/18/17 at 22:01; Status DC Ondansetron HCl (Zofran) 4 mg PRN Q8HRS PRN IV NAUSEA/VOMITING; Start at 23:45; Stop 10/19/17 at 08:47; Status DC Dextrose/Sodium Chloride 1,000 ml @ 100 mls/hr 1X ONCE IV Last administered on 10/19/17 00:39; Start 10/18/17 at 23:45; Stop 10/19/17 at 09:44; Status DC Docusate Sodium (Colace) 100 mg BID PO ; Start 10/19/17 at 09:00 Oxycodone/ Acetaminophen (Percocet 5/325) 1 tab PRN Q4HRS PRN PO MILD PAIN, 1ST CHOICE Last administered on 10/19/17 01:10; Start 10/19/17 at 01:00 Multivit/ Folic Acid/Iron (Multivitamin ) 1 tab DAILY PO ; Start 10/19/17 at 09:00 Calcium Carbonate/ Glycine (Tums) 500 mg PRN Q3HRS PRN PO INDIGESTION Last administered on 10/19/17 03:44; Start 10/19/17 at 03:30 Morphine Sulfate 2 mg PRN Q2HR PRN IV SEVERE PAIN; Start 10/19/17 at 03:30; Stop 10/19/17 at 03:51; Status DC Morphine Sulfate 2 mg PRN Q4HRS PRN IV SEVERE PAIN Last administered on 09:59; Start 10/19/17 at 04:00 Ondansetron HCl (Zofran) 4 mg PRN Q6HRS PRN IV NAUSEA/VOMITING; Start at 09:00; Stop 10/20/17 at 08:59 Active Scripts Active Colace (Docusate Sodium) 100 Mg Capsule 100 Mg PO BID Oxycodone-Acetaminophen 5-325 (Oxycodone Hcl/Acetaminophen) 1 Each Tablet 1 Tab PO PRN Q4HRS PRN Reported Tablet ( #103/Iron Fumarate/Fa) 1 Each Tablet 1 Each PO DAILY Tablet ( #103/Iron Fumarate/Fa) 1 Each Tablet 1 Each PO Allergies Allergies: Coded Allergies: No Known Allergies (Verified Allergy, Unknown, 10/15/17) ROS Review of System as per history of present illness, there is of the 14 point systems reviewed negative Physical Exam General: Alert, Oriented X3, Cooperative, No acute distress HEENT: Atraumatic, PERRLA, Mucous membr. moist/pink Lungs: Clear to auscultation, Normal air movement Heart: S1S2, RRR, no thrills, no rubs, no gallops, no murmurs Cardiovascular: S1, S2 Breasts: Normal, Rt breast nml w/o mass, Lt breast nml w/o mass, Nipples normal Abdomen: Soft, No tenderness, Other (laparoscopic appendectomy wounds properly taped, dressing dry) Rectal Exam: not examined, mass Extremities: No clubbing, No cyanosis, No edema, Normal pulses, No tenderness/ swelling Skin: No rashes, No breakdown, No significant lesion Neuro: Normal gait, Normal speech, Strength at 5/5 X4 ext, Normal tone, Sensation intact, Cranial nerves 3-12 NL, Reflexes 2+ Psych/Mental Status: Mental status NL, Mood NL Vitals Vitals Vital Signs Date Time Temp Pulse Resp B/P (MAP) Pulse Ox O2 Delivery O2 Flow Rate FiO2 10/19/17 09:59 Room Air 10/19/17 07:00 97.7 74 18 103/59 (74) 96 97.7 Labs Labs Laboratory Tests Test 10/18/17 20:55 10/18/17 20:59 10/18/17 21:50 10/19/17 06:10 Urine Collection Type Unknown Urine Color Yellow Urine Clarity Clear Urine pH 7.0 Urine Specific [place] 1.010 Urine Protein Negative mg/dL (NEG-TRACE) Urine Glucose (UA) Negative mg/dL (NEG) Urine Ketones (Stick) Negative mg/dL (NEG) Urine Blood Negative (NEG) Urine Nitrite Negative (NEG) Urine Bilirubin Negative (NEG) Urine Urobilinogen Dipstick 0.2 mg/dL (0.2 mg/dL) Urine Leukocyte Esterase Negative (NEG) Urine RBC 0 /HPF (0-2) Urine WBC 0 /HPF (0-4) Urine Squamous Epithelial Cells Mod /LPF Urine Bacteria Moderate /HPF (0-FEW) Bedside Urine HCG, Qualitative Hcg negative (Negative) White Blood Count 9.6 x10^3/uL (4.0-11.0) 6.8 x10^3/uL (4.0-11.0) Red Blood Count 4.44 x10^6/uL (3.50-5.40) 4.04 x10^6/uL (3.50-5.40) Hemoglobin 13.2 g/dL (12.0-15.5) 12.2 g/dL (12.0-15.5) Hematocrit 39.3 % (36.0-47.0) 35.8 % (36.0-47.0) Mean Corpuscular Volume 89 fL (79-100) 89 fL (79-100) Mean Corpuscular Hemoglobin 30 pg (25-35) 30 pg (25-35) Mean Corpuscular Hemoglobin Concent 34 g/dL (31-37) 34 g/dL (31-37) Red Cell Distribution Width 13.2 % (11.5-14.5) 13.2 % (11.5-14.5) Platelet Count 223 x10^3/uL (140-400) 184 x10^3/uL (140-400) Neutrophils (%) (Auto) 68 % (31-73) 53 % (31-73) Lymphocytes (%) (Auto) 23 % (24-48) 37 % (24-48) Monocytes (%) (Auto) 7 % (0-9) 7 % (0-9) Eosinophils (%) (Auto) 1 % (0-3) 2 % (0-3) Basophils (%) (Auto) 0 % (0-3) 1 % (0-3) Neutrophils # (Auto) 6.6 x10^3uL (1.8-7.7) 3.6 x10^3uL (1.8-7.7) Lymphocytes # (Auto) 2.2 x10^3/uL (1.0-4.8) 2.5 x10^3/uL (1.0-4.8) Monocytes # (Auto) 0.7 x10^3/uL (0.0-1.1) 0.5 x10^3/uL (0.0-1.1) Eosinophils # (Auto) 0.1 x10^3/uL (0.0-0.7) 0.1 x10^3/uL (0.0-0.7) Basophils # (Auto) 0.0 x10^3/uL (0.0-0.2) 0.0 x10^3/uL (0.0-0.2) Prothrombin Time 12.5 SEC (11.7-14.0) Prothromb Time International Ratio 1.0 (0.8-1.1) Activated Partial Thromboplast Time 26 SEC (24-38) Sodium Level 142 mmol/L (136-145) 140 mmol/L (136-145) Potassium Level 3.6 mmol/L (3.5-5.1) 3.6 mmol/L (3.5-5.1) Chloride Level 103 mmol/L (98-107) 106 mmol/L (98-107) Carbon Dioxide Level 28 mmol/L (21-32) 24 mmol/L (21-32) Anion Gap 11 (6-14) 10 (6-14) Blood Urea Nitrogen 9 mg/dL (7-20) 7 mg/dL (7-20) Creatinine 0.8 mg/dL (0.6-1.0) 0.6 mg/dL (0.6-1.0) Estimated GFR (Cockcroft-Gault) 80.3 111.9 Glucose Level 112 mg/dL (70-99) 131 mg/dL (70-99) Calcium Level 9.2 mg/dL (8.5-10.1) 8.2 mg/dL (8.5-10.1) Total Bilirubin 0.2 mg/dL (0.2-1.0) 0.1 mg/dL (0.2-1.0) Direct Bilirubin < 0.1 mg/dL (0.0-0.2) Aspartate Amino Transf (AST/SGOT) 26 U/L (15-37) 25 U/L (15-37) Alanine Aminotransferase (ALT/SGPT) 23 U/L (14-59) 21 U/L (14-59) Alkaline Phosphatase 78 U/L (46-116) 63 U/L (46-116) Creatine Kinase 76 U/L (26-192) Creatine Kinase MB (Mass) < 0.5 ng/mL (0.0-3.6) Creatine Kinase MB Relative Index % (0-4) Total Protein 7.4 g/dL (6.4-8.2) 6.6 g/dL (6.4-8.2) Albumin 3.5 g/dL (3.4-5.0) 2.9 g/dL (3.4-5.0) Lipase 126 U/L (73-393) BUN/Creatinine Ratio 12 (6-20) Albumin/Globulin Ratio 0.8 (1.0-1.7) Laboratory Tests Test 10/18/17 20:55 10/18/17 20:59 10/18/17 21:50 10/19/17 06:10 Urine Collection Type Unknown Urine Color Yellow Urine Clarity Clear Urine pH 7.0 Urine Specific [place] 1.010 Urine Protein Negative mg/dL (NEG-TRACE) Urine Glucose (UA) Negative mg/dL (NEG) Urine Ketones (Stick) Negative mg/dL (NEG) Urine Blood Negative (NEG) Urine Nitrite Negative (NEG) Urine Bilirubin Negative (NEG) Urine Urobilinogen Dipstick 0.2 mg/dL (0.2 mg/dL) Urine Leukocyte Esterase Negative (NEG) Urine RBC 0 /HPF (0-2) Urine WBC 0 /HPF (0-4) Urine Squamous Epithelial Cells Mod /LPF Urine Bacteria Moderate /HPF (0-FEW) Bedside Urine HCG, Qualitative Hcg negative (Negative) White Blood Count 9.6 x10^3/uL (4.0-11.0) 6.8 x10^3/uL (4.0-11.0) Red Blood Count 4.44 x10^6/uL (3.50-5.40) 4.04 x10^6/uL (3.50-5.40) Hemoglobin 13.2 g/dL (12.0-15.5) 12.2 g/dL (12.0-15.5) Hematocrit 39.3 % (36.0-47.0) 35.8 % (36.0-47.0) Mean Corpuscular Volume 89 fL (79-100) 89 fL (79-100) Mean Corpuscular Hemoglobin 30 pg (25-35) 30 pg (25-35) Mean Corpuscular Hemoglobin Concent 34 g/dL (31-37) 34 g/dL (31-37) Red Cell Distribution Width 13.2 % (11.5-14.5) 13.2 % (11.5-14.5) Platelet Count 223 x10^3/uL (140-400) 184 x10^3/uL (140-400) Neutrophils (%) (Auto) 68 % (31-73) 53 % (31-73) Lymphocytes (%) (Auto) 23 % (24-48) 37 % (24-48) Monocytes (%) (Auto) 7 % (0-9) 7 % (0-9) Eosinophils (%) (Auto) 1 % (0-3) 2 % (0-3) Basophils (%) (Auto) 0 % (0-3) 1 % (0-3) Neutrophils # (Auto) 6.6 x10^3uL (1.8-7.7) 3.6 x10^3uL (1.8-7.7) Lymphocytes # (Auto) 2.2 x10^3/uL (1.0-4.8) 2.5 x10^3/uL (1.0-4.8) Monocytes # (Auto) 0.7 x10^3/uL (0.0-1.1) 0.5 x10^3/uL (0.0-1.1) Eosinophils # (Auto) 0.1 x10^3/uL (0.0-0.7) 0.1 x10^3/uL (0.0-0.7) Basophils # (Auto) 0.0 x10^3/uL (0.0-0.2) 0.0 x10^3/uL (0.0-0.2) Prothrombin Time 12.5 SEC (11.7-14.0) Prothromb Time International Ratio 1.0 (0.8-1.1) Activated Partial Thromboplast Time 26 SEC (24-38) Sodium Level 142 mmol/L (136-145) 140 mmol/L (136-145) Potassium Level 3.6 mmol/L (3.5-5.1) 3.6 mmol/L (3.5-5.1) Chloride Level 103 mmol/L (98-107) 106 mmol/L (98-107) Carbon Dioxide Level 28 mmol/L (21-32) 24 mmol/L (21-32) Anion Gap 11 (6-14) 10 (6-14) Blood Urea Nitrogen 9 mg/dL (7-20) 7 mg/dL (7-20) Creatinine 0.8 mg/dL (0.6-1.0) 0.6 mg/dL (0.6-1.0) Estimated GFR (Cockcroft-Gault) 80.3 111.9 Glucose Level 112 mg/dL (70-99) 131 mg/dL (70-99) Calcium Level 9.2 mg/dL (8.5-10.1) 8.2 mg/dL (8.5-10.1) Total Bilirubin 0.2 mg/dL (0.2-1.0) 0.1 mg/dL (0.2-1.0) Direct Bilirubin < 0.1 mg/dL (0.0-0.2) Aspartate Amino Transf (AST/SGOT) 26 U/L (15-37) 25 U/L (15-37) Alanine Aminotransferase (ALT/SGPT) 23 U/L (14-59) 21 U/L (14-59) Alkaline Phosphatase 78 U/L (46-116) 63 U/L (46-116) Creatine Kinase 76 U/L (26-192) Creatine Kinase MB (Mass) < 0.5 ng/mL (0.0-3.6) Creatine Kinase MB Relative Index % (0-4) Total Protein 7.4 g/dL (6.4-8.2) 6.6 g/dL (6.4-8.2) Albumin 3.5 g/dL (3.4-5.0) 2.9 g/dL (3.4-5.0) Lipase 126 U/L (73-393) BUN/Creatinine Ratio 12 (6-20) Albumin/Globulin Ratio 0.8 (1.0-1.7) VTE Prophylaxis Ordered VTE Prophylaxis Devices: Yes VTE Pharmacological Prophylaxi: Yes Assessment/Plan Assessment/Plan Assessment: Dizziness, nausea, emesis Recent appendectomy laparoscopic, uneventful Recent ovarian cystectomy uneventful Recent miscarriage, will follow-up with fertility clinic in [place] Abdominal pain Right shoulder pain, resolved Plan: I would try some diet She seems ready for it Await general surgery Rounds but otherwise I think this is all benign and she can manage at home. I did discuss with her Mahi ODT We can check for flu a and B status is simple nasal swab, she thinks she is just stuffy etc. that might be causing her symptoms of dizziness etc. Observation status KALEIGH HDZ MD Oct 19, 2017 10:22
[2017-10-19] MEDS ORDERED: SCOPOLAMINE 1.5MG PATCH. TD SCH (11:30)
[2017-10-19 11:45] LABS: OBC FLU VALID
[2017-10-19] MEDS: DOCUSATE SODIUM 100 MG CAPSULE. PO SCH ×2 (13:18→21:07)
[2017-10-19] MEDS ORDERED: MINERAL OIL 133 ML ENEMA. PR ONE (17:30)
[2017-10-20] MEDS: oxyCODONE/APAP 5/325 1 TAB TABLET PO PRN ×2 (00:08→08:13)
[2017-10-20 02:42] VITALS: BP 95/51
[2017-10-20 07:00] VITALS: BP 96/58
[2017-10-20] MEDS: DOCUSATE SODIUM 100 MG CAPSULE. PO SCH (08:17)
[2017-10-20] MEDS: PRENATAL MULTIVITAMIN TABLET. PO SCH (08:17)
[2017-10-20] MEDS ORDERED: IBUPROFEN 400 MG TABLET. PO PRN (09:00)
[2017-10-20] MEDS ORDERED: POLYETHYLENE GLYCOL 3350 17 GM PACKET. PO SCH (09:00)
[2017-10-20] MEDS ORDERED: IBUPROFEN 600 MG TABLET. PO ONE (09:00)
--- NOTE | 2017-10-20 09:04 | PDOC3 ---
Discharge Summary Visit Information Date of Admission: Oct 18, 2017 Date of Discharge: Oct 20, 2017 Admitting Diagnosis Comment: Dizziness, nausea, emesis Recent appendectomy laparoscopic, uneventful Recent ovarian cystectomy uneventful Recent miscarriage, will follow-up with fertility clinic in [place] Abdominal pain Right shoulder pain, resolved Final Diagnosis Problems Medical Problems: (1) Dizziness Status: Acute Brief Hospital Course Allergies Allergies Coded Allergies Type Severity Reaction Last Updated Verified No Known Allergies Allergy Unknown 10/15/17 Yes Vital Signs Vital Signs Date Time Temp Pulse Resp B/P (MAP) Pulse Ox O2 Delivery O2 Flow Rate FiO2 10/20/17 08:13 20 Room Air 10/20/17 07:00 97.1 85 96/58 (71) 98 97.1 Lab Results Laboratory Tests Test 10/18/17 20:55 10/18/17 20:59 10/18/17 21:50 10/19/17 06:10 Urine Collection Type Unknown Urine Color Yellow Urine Clarity Clear Urine pH 7.0 Urine Specific [place] 1.010 Urine Protein Negative mg/dL (NEG-TRACE) Urine Glucose (UA) Negative mg/dL (NEG) Urine Ketones (Stick) Negative mg/dL (NEG) Urine Blood Negative (NEG) Urine Nitrite Negative (NEG) Urine Bilirubin Negative (NEG) Urine Urobilinogen Dipstick 0.2 mg/dL (0.2 mg/dL) Urine Leukocyte Esterase Negative (NEG) Urine RBC 0 /HPF (0-2) Urine WBC 0 /HPF (0-4) Urine Squamous Epithelial Cells Mod /LPF Urine Bacteria Moderate /HPF (0-FEW) Bedside Urine HCG, Qualitative Hcg negative (Negative) White Blood Count 9.6 x10^3/uL (4.0-11.0) 6.8 x10^3/uL (4.0-11.0) Red Blood Count 4.44 x10^6/uL (3.50-5.40) 4.04 x10^6/uL (3.50-5.40) Hemoglobin 13.2 g/dL (12.0-15.5) 12.2 g/dL (12.0-15.5) Hematocrit 39.3 % (36.0-47.0) 35.8 % (36.0-47.0) Mean Corpuscular Volume 89 fL (79-100) 89 fL (79-100) Mean Corpuscular Hemoglobin 30 pg (25-35) 30 pg (25-35) Mean Corpuscular Hemoglobin Concent 34 g/dL (31-37) 34 g/dL (31-37) Red Cell Distribution Width 13.2 % (11.5-14.5) 13.2 % (11.5-14.5) Platelet Count 223 x10^3/uL (140-400) 184 x10^3/uL (140-400) Neutrophils (%) (Auto) 68 % (31-73) 53 % (31-73) Lymphocytes (%) (Auto) 23 % (24-48) 37 % (24-48) Monocytes (%) (Auto) 7 % (0-9) 7 % (0-9) Eosinophils (%) (Auto) 1 % (0-3) 2 % (0-3) Basophils (%) (Auto) 0 % (0-3) 1 % (0-3) Neutrophils # (Auto) 6.6 x10^3uL (1.8-7.7) 3.6 x10^3uL (1.8-7.7) Lymphocytes # (Auto) 2.2 x10^3/uL (1.0-4.8) 2.5 x10^3/uL (1.0-4.8) Monocytes # (Auto) 0.7 x10^3/uL (0.0-1.1) 0.5 x10^3/uL (0.0-1.1) Eosinophils # (Auto) 0.1 x10^3/uL (0.0-0.7) 0.1 x10^3/uL (0.0-0.7) Basophils # (Auto) 0.0 x10^3/uL (0.0-0.2) 0.0 x10^3/uL (0.0-0.2) Prothrombin Time 12.5 SEC (11.7-14.0) Prothromb Time International Ratio 1.0 (0.8-1.1) Activated Partial Thromboplast Time 26 SEC (24-38) Sodium Level 142 mmol/L (136-145) 140 mmol/L (136-145) Potassium Level 3.6 mmol/L (3.5-5.1) 3.6 mmol/L (3.5-5.1) Chloride Level 103 mmol/L (98-107) 106 mmol/L (98-107) Carbon Dioxide Level 28 mmol/L (21-32) 24 mmol/L (21-32) Anion Gap 11 (6-14) 10 (6-14) Blood Urea Nitrogen 9 mg/dL (7-20) 7 mg/dL (7-20) Creatinine 0.8 mg/dL (0.6-1.0) 0.6 mg/dL (0.6-1.0) Estimated GFR (Cockcroft-Gault) 80.3 111.9 Glucose Level 112 mg/dL (70-99) 131 mg/dL (70-99) Calcium Level 9.2 mg/dL (8.5-10.1) 8.2 mg/dL (8.5-10.1) Total Bilirubin 0.2 mg/dL (0.2-1.0) 0.1 mg/dL (0.2-1.0) Direct Bilirubin < 0.1 mg/dL (0.0-0.2) Aspartate Amino Transf (AST/SGOT) 26 U/L (15-37) 25 U/L (15-37) Alanine Aminotransferase (ALT/SGPT) 23 U/L (14-59) 21 U/L (14-59) Alkaline Phosphatase 78 U/L (46-116) 63 U/L (46-116) Creatine Kinase 76 U/L (26-192) Creatine Kinase MB (Mass) < 0.5 ng/mL (0.0-3.6) Creatine Kinase MB Relative Index % (0-4) Total Protein 7.4 g/dL (6.4-8.2) 6.6 g/dL (6.4-8.2) Albumin 3.5 g/dL (3.4-5.0) 2.9 g/dL (3.4-5.0) Lipase 126 U/L (73-393) BUN/Creatinine Ratio 12 (6-20) Albumin/Globulin Ratio 0.8 (1.0-1.7) Test 10/19/17 10:48 Influenza Type A Antigen Negative (NEGATIVE) Influenza Type B Antigen Negative (NEGATIVE) Laboratory Tests Test 10/19/17 10:48 Influenza Type A Antigen Negative (NEGATIVE) Influenza Type B Antigen Negative (NEGATIVE) Brief Hospital Course Ms. Wolfe is a 37 old female who was a readmission, she just underwent laparoscopic appendectomy which was uneventful by our general surgery team. But unfortunately had nausea vomiting unable to keep down hence came back to the emergency room and was subsequently admitted. Labs look fine. She is looking much better on the day of discharge. Appendix pathology turned out to be endometriosis. She was also having a miscarriage at time of the appendix/ appendicitis. She follows with infertility clinic at because of endometriosis and also infertility issues. I did advise her to just use ibuprofen which will help with endometriosis. She will follow-up with infertility clinic. She had some constipation and obstipation so I did advise about on narcotics as this is usually done on the postop days #2-3 otherwise NSAIDs would be appropriate. She understands. Cleared from general surgery to be discharged if continues to feel well better later. The case discussed with DEISY Cannon at bedside. Patient seen and examined Discharge time 31 minutes. 50% counseling consults performed: general surgery Procedures performed none Discharge Information Condition at Discharge: Improved, Stable Disposition/Orders: D/C to Home Scheduled Docusate Sodium (Colace), 100 MG PO BID #103/Iron Fumarate/Fa ( Tablet), 1 EACH PO DAILY, ( Reported) Scheduled PRN Oxycodone Hcl/Acetaminophen (Oxycodone-Acetaminophen 5-325), 1 TAB PO PRN Q4HRS PRN for MILD PAIN, 1ST CHOICE Miscellaneous Medications #103/Iron Fumarate/Fa ( Tablet), 1 EACH PO, (Reported) KALEIGH HDZ MD Oct 20, 2017 09:04
--- NOTE | 2017-10-20 10:09 | PDOC ---
JEN KUMAR IDENTIFICATION AND RECORDS COMMANDER 10/20/17 1009: SURGICAL PROGRESS NOTE Subjective overall feeling better no significant stool yet Vital Signs Vital Signs Date Time Temp Pulse Resp B/P (MAP) Pulse Ox O2 Delivery O2 Flow Rate FiO2 10/20/17 08:13 20 Room Air 10/20/17 07:00 97.1 85 96/58 (71) 98 97.1 I&O Intake and Output 10/20/17 07:00 Intake Total 440 ml Balance 440 ml Intake Oral 440 ml # Voids 5 General: Alert, Oriented X3, Cooperative, No acute distress Abdomen: Soft, No tenderness Labs Laboratory Tests Test 10/18/17 20:55 10/18/17 20:59 10/18/17 21:50 10/19/17 06:10 Urine Collection Type Unknown Urine Color Yellow Urine Clarity Clear Urine pH 7.0 Urine Specific [place] 1.010 Urine Protein Negative mg/dL (NEG-TRACE) Urine Glucose (UA) Negative mg/dL (NEG) Urine Ketones (Stick) Negative mg/dL (NEG) Urine Blood Negative (NEG) Urine Nitrite Negative (NEG) Urine Bilirubin Negative (NEG) Urine Urobilinogen Dipstick 0.2 mg/dL (0.2 mg/dL) Urine Leukocyte Esterase Negative (NEG) Urine RBC 0 /HPF (0-2) Urine WBC 0 /HPF (0-4) Urine Squamous Epithelial Cells Mod /LPF Urine Bacteria Moderate /HPF (0-FEW) Bedside Urine HCG, Qualitative Hcg negative (Negative) White Blood Count 9.6 x10^3/uL (4.0-11.0) 6.8 x10^3/uL (4.0-11.0) Red Blood Count 4.44 x10^6/uL (3.50-5.40) 4.04 x10^6/uL (3.50-5.40) Hemoglobin 13.2 g/dL (12.0-15.5) 12.2 g/dL (12.0-15.5) Hematocrit 39.3 % (36.0-47.0) 35.8 % (36.0-47.0) Mean Corpuscular Volume 89 fL (79-100) 89 fL (79-100) Mean Corpuscular Hemoglobin 30 pg (25-35) 30 pg (25-35) Mean Corpuscular Hemoglobin Concent 34 g/dL (31-37) 34 g/dL (31-37) Red Cell Distribution Width 13.2 % (11.5-14.5) 13.2 % (11.5-14.5) Platelet Count 223 x10^3/uL (140-400) 184 x10^3/uL (140-400) Neutrophils (%) (Auto) 68 % (31-73) 53 % (31-73) Lymphocytes (%) (Auto) 23 % (24-48) 37 % (24-48) Monocytes (%) (Auto) 7 % (0-9) 7 % (0-9) Eosinophils (%) (Auto) 1 % (0-3) 2 % (0-3) Basophils (%) (Auto) 0 % (0-3) 1 % (0-3) Neutrophils # (Auto) 6.6 x10^3uL (1.8-7.7) 3.6 x10^3uL (1.8-7.7) Lymphocytes # (Auto) 2.2 x10^3/uL (1.0-4.8) 2.5 x10^3/uL (1.0-4.8) Monocytes # (Auto) 0.7 x10^3/uL (0.0-1.1) 0.5 x10^3/uL (0.0-1.1) Eosinophils # (Auto) 0.1 x10^3/uL (0.0-0.7) 0.1 x10^3/uL (0.0-0.7) Basophils # (Auto) 0.0 x10^3/uL (0.0-0.2) 0.0 x10^3/uL (0.0-0.2) Prothrombin Time 12.5 SEC (11.7-14.0) Prothromb Time International Ratio 1.0 (0.8-1.1) Activated Partial Thromboplast Time 26 SEC (24-38) Sodium Level 142 mmol/L (136-145) 140 mmol/L (136-145) Potassium Level 3.6 mmol/L (3.5-5.1) 3.6 mmol/L (3.5-5.1) Chloride Level 103 mmol/L (98-107) 106 mmol/L (98-107) Carbon Dioxide Level 28 mmol/L (21-32) 24 mmol/L (21-32) Anion Gap 11 (6-14) 10 (6-14) Blood Urea Nitrogen 9 mg/dL (7-20) 7 mg/dL (7-20) Creatinine 0.8 mg/dL (0.6-1.0) 0.6 mg/dL (0.6-1.0) Estimated GFR (Cockcroft-Gault) 80.3 111.9 Glucose Level 112 mg/dL (70-99) 131 mg/dL (70-99) Calcium Level 9.2 mg/dL (8.5-10.1) 8.2 mg/dL (8.5-10.1) Total Bilirubin 0.2 mg/dL (0.2-1.0) 0.1 mg/dL (0.2-1.0) Direct Bilirubin < 0.1 mg/dL (0.0-0.2) Aspartate Amino Transf (AST/SGOT) 26 U/L (15-37) 25 U/L (15-37) Alanine Aminotransferase (ALT/SGPT) 23 U/L (14-59) 21 U/L (14-59) Alkaline Phosphatase 78 U/L (46-116) 63 U/L (46-116) Creatine Kinase 76 U/L (26-192) Creatine Kinase MB (Mass) < 0.5 ng/mL (0.0-3.6) Creatine Kinase MB Relative Index % (0-4) Total Protein 7.4 g/dL (6.4-8.2) 6.6 g/dL (6.4-8.2) Albumin 3.5 g/dL (3.4-5.0) 2.9 g/dL (3.4-5.0) Lipase 126 U/L (73-393) BUN/Creatinine Ratio 12 (6-20) Albumin/Globulin Ratio 0.8 (1.0-1.7) Test 10/19/17 10:48 Influenza Type A Antigen Negative (NEGATIVE) Influenza Type B Antigen Negative (NEGATIVE) Laboratory Tests Test 10/19/17 10:48 Influenza Type A Antigen Negative (NEGATIVE) Influenza Type B Antigen Negative (NEGATIVE) Problem List Problems Medical Problems: (1) Dizziness Status: Acute Assessment/Plan home once has stool, continue laxatives, liquids Problems: ARTUR CHRISTIANSEN MD 10/20/17 1146: SURGICAL PROGRESS NOTE Assessment/Plan pt seen agree with above Problems: JEN KUMAR APRN Oct 20, 2017 10:09 ARTUR CHRISTIANSEN MD Oct 20, 2017 11:46
[2017-10-20 11:07] VITALS: BP 91/61
[2017-10-20] MEDS ORDERED: MINERAL OIL 133 ML ENEMA. PR ONE (12:15)
[2017-10-20 15:05] VITALS: BP 93/66
== END 2017-10-20 16:10 | disposition home or self-care (01) | DRG 761 ==
LOC: ER 20:29 → 5 NORTH 23:05
PROVIDERS: ADMIT Internal Medicine Hematology & Oncology; ATTEND Internal Medicine Hematology & Oncology
DX: N80.9 Endometriosis, unspecified (principal); K59.03 Drug induced constipation; N97.9 Female infertility, unspecified; Z82.49 Family history of ischemic heart disease and other diseases of the circulatory system
CPT/HCPCS: 36415; 80048; 80053; 80076; 81001; 81025; 82553; 83690; 85025; 85610; 85730; 87086; 87804; 96361; 96374; J2270; J2405; J7030; 99285-25